=== PATIENT | male | born 1955 | race Caucasian/White ===

== ENCOUNTER 2020-01-20 06:23 | Day surgery (SDC) | payer OTHER ==
[2020-01-14 11:29] LABS: BASOPHILS % (AUTO) 0.9 % (0.0-5.0); EOSINOPHILS % (AUTO) 2.8 % (0.0-8.0); HEMATOCRIT 45.3 % (42-54); LYMPHOCYTES % (AUTO) 38.5 % (21.0-51.0); MEAN CORPUSCULAR HEMOGLOBIN 28.8 pg (27.0-33.0); MEAN CORPUSCULAR HGB CONC 32.9 g/dL (32.0-36.0); MEAN CORPUSCULAR VOLUME 87.6 fL (79-99); MONOCYTES % (AUTO) 8.6 % (3.0-13.0); NEUTROPHILS % (AUTO) 49.2 % (40.0-77.0); PLATELET COUNT (AUTO) 225 K/uL (130-400); RED BLOOD CELL COUNT(AUTO) 5.17 MIL/uL (4.50-6.20); RED CELL DISTRIBUTION WIDTH 13.2 % (11.0-15.5); WHITE BLOOD COUNT (AUTO) 5.3 K/uL (4.8-10.8)
[2020-01-14 11:48] LABS: ALBUMIN 4.4 g/dL (3.5-5.0); BILIRUBIN,TOTAL 0.3 mg/dL (0.2-1.0); CREATININE 1.3 mg/dL (0.5-1.5); POTASSIUM 4.6 mmol/L (3.5-5.1); TOTAL PROTEIN, SERUM 7.7 g/dL (6.0-8.3)
[2020-01-19 09:47] VITALS: BP 123/75
--- NOTE | 2020-01-19 09:57 | NUR ---
EKG INFORMED DR. ESCOBAR OF EKG. NO ORDERS RECEIVED. PROCEED WITH PLANNED PROCEDURE.
[~2020-01-20] VITALS: Ht 180.3 cm; Wt 87.3 kg
[2020-01-20] VITALS (11 sets, daily range): BP systolic 129–154; BP diastolic 79–96
[~2020-01-20 06:23] MED LIST: CEFAZOLIN SODIUM 1 GM VIAL IVP SCH; ESOM20CA39 PO; LEVO50TA11 PO; METF-446 PO
[2020-01-20] MEDS ORDERED: SODIUM CHLORIDE 0.9% 1000ML 1,000 ML IV ONE (06:41)
[2020-01-20] MEDS ORDERED: LIDOCAINE PF 2% 5ML ABBOJECT ONE (07:31)
[2020-01-20] MEDS ORDERED: DEXAMETHASONE SOD PHOSPHATE 10MG/ML 1ML VIAL ONE (07:31)
[2020-01-20] MEDS ORDERED: PROPOFOL 10 MG/ML 20ML VIAL IV ONE (07:31)
[2020-01-20] MEDS ORDERED: FENTANYL CITRATE PF 50 MCG/1 ML 2ML VIAL ONE ×2 (07:32→07:53)
[2020-01-20] MEDS ORDERED: MIDAZOLAM HCL 1 MG/ML 2ML VIAL ONE (07:32)
[2020-01-20] MEDS ORDERED: ONDANSETRON HCL 4 MG/2 ML VIAL ONE ×2 (07:32→09:03)
[2020-01-20] MEDS ORDERED: ROCURONIUM 10MG/1ML SYR 10 MG/ML ML ONE (07:43)
[2020-01-20] MEDS ORDERED: CELESTONE SOLUSPAN 6 MG/ML 5ML VIAL IJ ONE (07:50)
[2020-01-20] MEDS ORDERED: NEOSTIGMINE 5MG/5ML SYR IV ONE (08:01)
[2020-01-20] MEDS ORDERED: GLYCOPYRROLATE 1 MG/5 ML SYRINGE ONE (08:01)
[2020-01-20] MEDS ORDERED: MEPERIDINE-PF 25 MG/ML SYG ONE (08:54)
--- NOTE | 2020-01-20 09:10 | NUR ---
POST RECEIVED PT FROM PACU, S/P LEFT HAND TRIGGER FINGER RELEASE DRESSING TO SITE DRY AND INTACT. NEUROVASCULAR CHECKS WNL. PT AWAKE AND ALERT NO DISTRESS NOTED. VS STABLE ON ARRIVAL. PLAN OF CARE DISCUSS WITH PATIENT.
--- NOTE | 2020-01-20 09:30 | NUR ---
DC DC INSTRUCTIONS GIVEN TO PT S SPOUSE OVER THE PHONE INSTRUCTED TO F/U WITH DR. SUTTON. REVIEWED DR MANCIA INTRUCTIONS WITH HER AND PHOTO COPY OF INSTRUCTIONS PROVIDED TO PT. PT STATES DR. SUTTON GAVE HIM RX PRIOR TO SURGERY. INSRUCTED TO KEEP DRESSING DRY AND CLEAN AT ALL TIMES.
--- NOTE | 2020-01-20 09:35 | NUR ---
DC PT DC HOME VIA WC,NO DISTRESS NOTED. PT ACCOMPANIED BY SPOUSE. DRESSING TO LEFT HAND DRY AND INTACT. NEUROVASCULAR CHECKS TO LEFT HAND WNL. PT DENIED ANY PAIN OR DISCOMFORTS
== END 2020-01-20 09:35 | disposition home or self-care (01) ==
LOC: DAH 06:23
PROVIDERS: ATTEND Orthopaedic Surgery
DX: M65.321 Trigger finger, right index finger (principal); M65.342 Trigger finger, left ring finger; E11.9 Type 2 diabetes mellitus without complications; K21.9 Gastro-esophageal reflux disease without esophagitis; Z79.899 Other long term (current) drug therapy; Z98.890 Other specified postprocedural states; Z87.891 Personal history of nicotine dependence; Z82.49 Family history of ischemic heart disease and other diseases of the circulatory system
CPT/HCPCS: 20550; 26055; 36415; 80053; 82948 ×2; 85025; 93005; A4213; A4215; A4221; A4222; A4223; A4649; A4663; A6223; A6260; J0690; J0702; J1100; J2001; J2175; J2250; J2405 ×2; J2704; J2710; J3010 ×2; J3490; J7030

== ENCOUNTER 2020-01-26 11:28 | Emergency (ER) | payer OTHER ==
[~2020-01-26 11:28] MED LIST changes: -CEFAZOLIN SODIUM 1 GM VIAL IVP SCH
[2020-01-26 12:30] LABS: APPEARANCE,URINE Clear (CLEAR); BILIRUBIN,URINE Negative (NEGATIVE); COLOR,URINE Yellow (YELLOW); GLUCOSE, URINE (UA) Negative (NEGATIVE); KETONES,URINE Trace mg/dL (NEGATIVE); LEUKOCYTE ESTERASE ,URINE Trace (NEGATIVE); NITRATE,URINE Negative (NEGATIVE); OCCULT BLOOD,URINE Small (NEGATIVE); PH,URINE >=9.0 (5.0-8.0); PROTEIN,URINE Trace mg/dL (NEGATIVE)
[2020-01-26 12:36] LABS: BACTERIA,URINE Rare /HPF (None Seen); MUCUS,URINE Few LPF (None Seen); SQUAMOUS EPITHELIAL CELL,UR Rare /HPF (0-2)
[2020-01-26] MEDS ORDERED: CEFTRIAXONE SODIUM 1 GM ONE (13:08)
[2020-01-26] MEDS ORDERED: LIDOCAINE HCL-MPF 1% 2ML VIAL ONE (13:09)
[2020-01-26] MEDS ORDERED: KETOROLAC TROMETHAMINE 30MG/ML ONE (13:14)
== END 2020-01-26 13:36 | disposition home or self-care (01) ==
LOC: EDH 11:28
DX: N13.6 Pyonephrosis (principal); E11.9 Type 2 diabetes mellitus without complications; Z87.891 Personal history of nicotine dependence
CPT/HCPCS: 74176; 81001; 96372 ×2; 99284; J0696; J1885; J3490

== ENCOUNTER 2020-10-07 06:26 | Day surgery (SDC) | payer OTHER ==
[2020-09-29 12:38] LABS: BASOPHILS % (AUTO) 0.9 % (0.0-5.0); EOSINOPHILS % (AUTO) 2.2 % (0.0-8.0); HEMATOCRIT 43.3 % (42-54); MEAN CORPUSCULAR HGB CONC 32.6 g/dL (32.0-36.0); MEAN CORPUSCULAR VOLUME 85.9 fL (79-99); NEUTROPHILS % (AUTO) 58.7 % (40.0-77.0); PLATELET COUNT (AUTO) 196 K/uL (130-400); RED BLOOD CELL COUNT(AUTO) 5.04 MIL/uL (4.50-6.20); RED CELL DISTRIBUTION WIDTH 13.4 % (11.0-15.5); WHITE BLOOD COUNT (AUTO) 5.6 K/uL (4.8-10.8)
[2020-09-29 12:51] LABS: CREATININE 1.3 mg/dL (0.5-1.5); POTASSIUM 4.1 mmol/L (3.5-5.1)
[2020-10-06 12:32] VITALS: BP 142/75
[2020-10-07] VITALS (17 sets, daily range): BP systolic 110–164; BP diastolic 66–91
[~2020-10-07] VITALS: Ht 180.3 cm; Wt 85.6 kg
[~2020-10-07 06:26] MED LIST changes: +CEFAZOLIN SODIUM 1 GM VIAL IVP SCH; +LACTATED RINGERS 1000ML 1,000 ML IV SCH
[2020-10-07] MEDS ORDERED: 0.9%NACL 1000ML 1,000 ML IV ONE (06:57)
[2020-10-07] MEDS ORDERED: MIDAZOLAM HCL 1 MG/ML 2ML VIAL ONE (07:30)
[2020-10-07] MEDS ORDERED: SUCCINYLCHOLINE CHLORIDE 20 MG/ML 10 ML VIAL ONE (07:30)
[2020-10-07] MEDS ORDERED: PROPOFOL 10 MG/ML 20ML VIAL IV ONE (07:30)
[2020-10-07] MEDS ORDERED: ROCURONIUM 10MG/1ML SYR 10 MG/ML ML ONE (07:30)
[2020-10-07] MEDS ORDERED: LIDOCAINE PF 100MG/5ML (2%) SYRINGE 5ML ONE (07:30)
[2020-10-07] MEDS ORDERED: FENTANYL CITRATE PF 50 MCG/1 ML 2ML VIAL ONE (07:32)
[2020-10-07] MEDS ORDERED: ONDANSETRON 4MG INJ ONE (08:29)
[2020-10-07] MEDS ORDERED: DEXAMETHASONE SOD PHOSPHATE 10MG/ML 1ML VIAL ONE (08:29)
[2020-10-07] MEDS ORDERED: MEPERIDINE-PF 25 MG/ML SYG ONE (08:58)
== END 2020-10-07 10:20 ==
LOC: DAH 06:26
PROVIDERS: ATTEND Orthopaedic Surgery
DX: M65.332 Trigger finger, left middle finger (principal); E11.9 Type 2 diabetes mellitus without complications; Z98.890 Other specified postprocedural states; Z79.899 Other long term (current) drug therapy; Z20.828 Contact with and (suspected) exposure to other viral communicable diseases
CPT/HCPCS: 20550; 26055; 36415; 80048; 82948 ×2; 85025; 93005; A4213; A4215; A4221; A4222; A4223; A4649; A4663; A4930; A6223; A6260; C9803; J0330; J0690; J1030; J1100; J2001; J2175; J2250; J2405; J2704; J3010; J7030 ×3; U0003